=== PATIENT | male | born 1950 | race African-American/Black ===

== ENCOUNTER 2016-06-13 10:19 | Inpatient (IN) | payer MEDICARE, MEDICAID ==
[~2016-06-13] VITALS: Ht 182.9 cm; Wt 97.6 kg
--- NOTE | 2016-06-13 10:27 | PHYS DOC ---
Adult General HPI HPI Patient is a 65 year old male who presents with status and shortness of breath. EMS was called because his O2 sats were noted be 87% upon their arrival. They report he increase it by suctioning saliva out of his mouth and a serum on oxygen at 8 liters per minute. According the patient's brother he is usually conversant of and this is quite a change in his mentation. The patient will open his eyes however he will not follow other commands or speak. He does have a past medical history of aphasia, CVA in the past. According to his brother the same thing happened presents with 3 weeks ago when he was admitted to [facility] in [place] spent the night in the symptoms resolved. Review of Systems Review of Systems Unable to obtain secondary to altered mental status Current Medications Current Medications Current Medications Medications (Trade) Dose Ordered Sig/Venita Start Time Stop Time Status Last Admin Dose Admin Albuterol/ Ipratropium (Duoneb) 3 ml 1X ONCE 06/13/16 10:30 06/13/16 10:42 DC 06/13/16 10:47 3 ML Allergies Allergies Allergies Coded Allergies Type Severity Reaction Last Updated Verified No Known Drug Allergies 06/13/16 No Physical Exam Physical Exam Constitutional: Well developed, well nourished, no acute distress, non-toxic appearance, not following commands. [] HENT: Normocephalic, atraumatic, bilateral external ears normal, oropharynx moist, no oral exudates, nose normal, excessive saliva noted in the nonrebreather. [] Eyes: PERRLA, EOMI, conjunctiva normal, no discharge. [] Neck: Normal range of motion, no tenderness, supple, no stridor. [] Cardiovascular:Heart rate regular rhythm, no murmur [] Lungs & Thorax: Bilateral breath sounds clear to auscultation [] Abdomen: Bowel sounds normal, soft, no tenderness, no masses, no pulsatile masses. [] Skin: Warm, dry, no erythema, no rash. [] Back: No tenderness, no CVA tenderness. [] Extremities: No tenderness, no cyanosis, no clubbing, ROM intact, no edema. [] Neurologic: Alert, will open eyes and squeeze hands, , contracture of the left upper show any Current Patient Data Vital Signs Vital Signs Date Time Temp Pulse Resp B/P Pulse Ox O2 Delivery O2 Flow Rate FiO2 06/13/16 11:15 100 NonRebreather Mask 10.0 06/13/16 10:58 76 30 164/88 06/13/16 10:19 97.8 97.8 Lab Values Laboratory Tests Test 06/13/16 10:26 06/13/16 10:55 06/13/16 11:07 O2 Saturation 99% (92-99) Arterial Blood pH 7.38 (7.35-7.45) Arterial Blood pCO2 at Patient Temp 42mmHg (35-46) Arterial Blood pO2 at Patient Temp 174mmHg (65-108) H Arterial Blood HCO3 24mmol/L (21-28) Arterial Blood Base Excess -1mmol/L (-3-3) Oxyhemoglobin 98.0% Methemoglobin 0.5% (0.0-1.9) Carbon Monoxide, Quantitative 0.3% (0.0-1.9) FiO2 100 White Blood Count 9.1x10^3/uL (4.0-11.0) Red Blood Count 4.08x10^6/uL (4.30-5.70) L Hemoglobin 12.6g/dL (13.0-17.5) L Hematocrit 37.6% (39.0-53.0) L Mean Corpuscular Volume 92fL (79-100) Mean Corpuscular Hemoglobin 31pg (25-35) Mean Corpuscular Hemoglobin Concent 33g/dL (31-37) Red Cell Distribution Width 13.7% (11.5-14.5) Platelet Count 151x10^3/uL (140-400) Neutrophils (%) (Auto) 79% (31-73) H Lymphocytes (%) (Auto) 13% (24-48) L Monocytes (%) (Auto) 8% (0-9) Eosinophils (%) (Auto) 1% (0-3) Basophils (%) (Auto) 0% (0-3) Neutrophils # (Auto) 7.2x10^3uL (1.8-7.7) Lymphocytes # (Auto) 1.1x10^3/uL (1.0-4.8) Monocytes # (Auto) 0.7x10^3/uL (0.0-1.1) Eosinophils # (Auto) 0.1x10^3/uL (0.0-0.7) Basophils # (Auto) 0.0x10^3/uL (0.0-0.2) Sodium Level 139mmol/L (136-145) Potassium Level 4.0mmol/L (3.5-5.1) Chloride Level 102mmol/L (98-107) Carbon Dioxide Level 26mmol/L (21-32) Anion Gap 11 (6-14) Blood Urea Nitrogen 14mg/dL (8-26) Creatinine 1.1mg/dL (0.7-1.3) Estimated GFR (Cockcroft-Gault) 80.8 Glucose Level 120mg/dL (70-99) H Calcium Level 8.8mg/dL (8.5-10.1) Total Bilirubin 0.6mg/dL (0.2-1.0) Direct Bilirubin 0.2mg/dL (0.0-0.2) Aspartate Amino Transferase (AST) 26U/L (15-37) Alanine Aminotransferase (ALT) 17U/L (16-63) Alkaline Phosphatase 50U/L (46-116) Ammonia 31mcmol/L (11-34) Creatine Kinase 95U/L (39-308) Creatine Kinase MB (Mass) 0.8ng/mL (0.0-3.6) Creatine Kinase MB Relative Index 0.8% (0-4) Troponin I Quantitative < 0.017ng/mL (0.000-0.055) HA-Nzl-N-Type Natriuretic Peptide 928pg/mL (0-124) H Total Protein 7.0g/dL (6.4-8.2) Albumin 3.0g/dL (3.4-5.0) L Glucose (Fingerstick) 121mg/dL (70-99) H Laboratory Tests 06/13/16 10:55 Laboratory Tests 06/13/16 10:55 EKG EKG EKG shows sinus rhythm with a rate of [address] elevations, T-wave inversions noted in leads V4,5, and aVL, normal axis, QTC 503 ms, as interpreted by me. Radiology/Procedures Radiology/Procedures [facility] [address] [place] [address] IMAGING REPORT Signed PATIENT: ANTONIO PIZARRO ACCOUNT: [id number] : 1950 LOCATION: ER AGE: 65 SEX: M EXAM STATUS: REG ER ORD. PHYSICIAN: CARLOS A MEDINA MD REASON: AMS PROCEDURE: CT HEAD WO CONTRAST CT head without contrast History: Altered mental status. Comparison: None. Procedure: Axial images are obtained of the head from the skull base through the vertex without IV contrast. One or more of the following individualized dose reduction techniques were utilized for the study: Automated exposure control Adjustment of mA and/or kV according to patient's size Use of iterative reconstruction technique. Findings: Motion artifact is seen at multiple levels which could obscure subtle abnormalities. There is mild-moderate diffuse cerebral and cerebellar volume loss, greater than expected for patient age. No mass-effect, intracranial mass, midline shift, hemorrhage or obvious acute infarction is identified. Basilar cisterns are patent. Patchy, nonspecific white matter low attenuation is seen, probably from chronic microvascular ischemic disease. Bone windows demonstrate no significant calvarial abnormality. The visualized paranasal sinuses appear clear. Impression: 1. Limited examination. No acute intracranial process. Please note that CT can be relatively insensitive to acute ischemic infarction for up to 24 hours after symptom onset. 2. Diffuse cerebral volume loss, greater than expected for patient age. 3. Nonspecific white matter changes, probably from chronic microvascular ischemic disease. DICTATED and SIGNED BY: LIZ RAMIREZ MD DATE: 06/13/16 115 CC: CARLOS A MEDINA MD; RAHEL MENCHACA MD ~ [facility] [address] [place] [id number] IMAGING REPORT Signed PATIENT: ANTONIO PIZARRO ACCOUNT: [id number] : 1950 LOCATION: ER AGE: 65 SEX: M EXAM STATUS: PRE ER ORD. PHYSICIAN: CARLOS A MEDINA MD REASON: soa PROCEDURE: PORTABLE CHEST 1V Portable chest, 06/13/2016: History: Shortness of breath The heart size and pulmonary vascularity are normal. There is mild calcific plaquing and tortuosity of the thoracic aorta. No pulmonary infiltrates are seen. There is no evidence of pleural fluid. Moderate spurring is present in the spine. IMPRESSION: 1. Aortic atherosclerosis. 2. No acute cardiopulmonary abnormality is detected. DICTATED and SIGNED BY: KEYUR CAVANAUGH MD DATE: 06/13/16 1052 CC: CARLOS A MEDINA MD ~ Impressions: Altered mental status Hypoxemia Course & Med Decision Making Course & Med Decision Making Pertinent Labs and Imaging studies reviewed. (See chart for details) Patient presents with somnolence and needing oxygen to keep his O2 sats up. ABG on a nonrebreather do not show any acute abnormalities. He was titrated down to a nasal cannula. He is able to open his eyes answer questions appropriately but is very somnolent. I'm not sure if he is receiving too much medications at his facility or he's got an organic process going on. CT scan of his head did not show any acute abnormalities his chest x-rays negative and basic labs are not concerning. He is being admitted the hospitalist for continued monitoring and additional workup. I spoke with regarding the patient's condition. He is in stable condition at this time his brother at bedside. According to his brother had a similar episode 3 weeks ago and was hospitalized at [facility] in [place]. Dragon Disclaimer Dragon Disclaimer This electronic medical record was generated, in whole or in part, using a voice recognition dictation system. Departure Departure Impression: Primary Impression: Mental status change Admitting Physician: Anton Ayon Condition: STABLE Problem Qualifiers Primary Impression: Mental status change Altered mental status type: somnolence Qualified Code: R40.0 - Somnolence CARLOS A MEDINA MD Jun 13, 2016 10:27
[2016-06-13] MEDS ORDERED: IPRATRPIUM/ALBUTEROL 0.5/2.5MG 3 ML NEBU. NEB ONE (10:30)
--- NOTE | 2016-06-13 10:55 | RAD ---
Portable chest, 06/13/2016: History: Shortness of breath The heart size and pulmonary vascularity are normal. There is mild calcific plaquing and tortuosity of the thoracic aorta. No pulmonary infiltrates are seen. There is no evidence of pleural fluid. Moderate spurring is present in the spine. IMPRESSION: 1. Aortic atherosclerosis. 2. No acute cardiopulmonary abnormality is detected.
[2016-06-13 11:21] LABS: BASO % 0 % (0-3); EOS % 1 % (0-3); HEMATOCRIT 37.6 % (39.0-53.0); HEMOGLOBIN 12.6 g/dL (13.0-17.5); LYMPH # 1.1 x10^3/uL (1.0-4.8); LYMPH % 13 % (24-48); MEAN CORPUSCULAR HEMOGLOBIN 31 pg (25-35); MEAN CORPUSCULAR HGB CONC 33 g/dL (31-37); MEAN CORPUSCULAR VOLUME 92 fL (79-100); MONO % 8 % (0-9); NEUT % 79 % (31-73); PLATELET COUNT 151 x10^3/uL (140-400); RED BLOOD COUNT 4.08 x10^6/uL (4.30-5.70); RED CELL DISTRIBUTION WIDTH 13.7 % (11.5-14.5); WHITE BLOOD COUNT 9.1 x10^3/uL (4.0-11.0)
[2016-06-13 11:33] LABS: CALCIUM 8.8 mg/dL (8.5-10.1); CREATININE 1.1 mg/dL (0.7-1.3); GFR 80.8
[2016-06-13 11:39] LABS: DIRECT BILIRUBIN 0.2 mg/dL (0.0-0.2); TOTAL BILIRUBIN 0.6 mg/dL (0.2-1.0)
--- NOTE | 2016-06-13 11:41 | EKG ---
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
[2016-06-13 11:46] LABS: CKMB MASS 0.8 ng/mL (0.0-3.6)
--- NOTE | 2016-06-13 12:04 | RAD ---
CT head without contrast History: Altered mental status. Comparison: None. Procedure: Axial images are obtained of the head from the skull base through the vertex without IV contrast. One or more of the following individualized dose reduction techniques were utilized for the study: Automated exposure control Adjustment of mA and/or kV according to patient's size Use of iterative reconstruction technique. Findings: Motion artifact is seen at multiple levels which could obscure subtle abnormalities. There is mild-moderate diffuse cerebral and cerebellar volume loss, greater than expected for patient age. No mass-effect, intracranial mass, midline shift, hemorrhage or obvious acute infarction is identified. Basilar cisterns are patent. Patchy, nonspecific white matter low attenuation is seen, probably from chronic microvascular ischemic disease. Bone windows demonstrate no significant calvarial abnormality. The visualized paranasal sinuses appear clear. Impression: 1. Limited examination. No acute intracranial process. Please note that CT can be relatively insensitive to acute ischemic infarction for up to 24 hours after symptom onset. 2. Diffuse cerebral volume loss, greater than expected for patient age. 3. Nonspecific white matter changes, probably from chronic microvascular ischemic disease.
[2016-06-13] MEDS ORDERED: ONDANSETRON PF 4 MG/2 ML VIAL. IV PRN (12:30)
[2016-06-13 12:34] LABS: BILIRUBIN,URINE NEGATIVE (NEG); GLUCOSE,URINE NEGATIVE (NEG); NITRITE,URINE NEGATIVE (NEG); PROTEIN,URINE NEGATIVE (NEG-TRACE)
[2016-06-13 12:35] LABS: BACTERIA,URINE 0 /HPF (0-FEW); RBC,URINE 0 /HPF (0-2); WBC,URINE OCC /HPF (0-4)
--- NOTE | 2016-06-13 13:09 | ACF ---
Admission Forms Criteria MENTAL STATUS CHANGE Clinical Indications for Inpatient Care (Place 'X' for any and all applicable criteria): Ongoing inpatient care may be needed for 1 or more of the following(1)(2)(3)(5)( 6): [X]I. Suspected serious etiology (eg, medical disorder, DIRECTOR OF PLANNING event) of altered mental status [ ]II. Danger to self or others not manageable at lower level of care [ ]III. Grave disability (eg, inability to perform self care necessary at lower level of care) [ ]IV. Agitation or inappropriate behavior interfering with care for primary condition (eg, attempting to discontinue lines or drains prematurely, unable to cooperate with respiratory care) [ ]V. Delirium [A] [D][E] as described by 1 or more of the following(26): [ ]a) Delirium due to alcohol or sedative [F] withdrawal [ ]b) Delirium of uncertain etiology that has not responded to appropriate empiric treatment [ ]c) Delirium that prevents performance of a life-sustaining function (eg, feeding or hydrating oneself) [X]. General contraindications and/or Inappropriate clinical situations for Observational Care in patients with Mental Status Change, when ANY ONE of the following is required: [X]a) Prediction of prolongation of LOS based on ANY ONE of the following may be considered as a contraindication for observational care 2, 3, 4, 5, 6, 7, 8, 9, 10, 11 [X]i) Age > 65 yrs. [ ]ii) Patient arriving by ambulance [ ]iii) Patient with high acuity [ ]iv) Patient requiring vital sign monitoring [ ]v) Patient on IV medication [ ]b) Systolic blood pressures greater than or equal to 180mmHg 3, 12 [ ]c) Patient with altered mental status including delirium and other alteration of consciousness, (3) [ ]d) Patient whose discharge disposition will be to a fci home or rehabilitation home should not be managed in Emergency Department Observation Unit. CMS rule requires 3 days hospital stay before such placement.3,13 [ ]e) Patient with failure to thrive due to broad array of etiologies 3,16,17 [ ]f) Inability to ambulate 3,14 Extended stay beyond goal length of stay for the primary condition may be needed until ALL of the following are present(3)(5): [ ]a) Underlying medical etiology of mental status change is absent, or has been established and adequately treated [ ]b) Danger to self or others is absent or manageable at lower level of care. [ ]c) Behavior crisis management, including physical or chemical restraints, is not required or available at lower level of car [ ]d) Substance or alcohol withdrawal is absent or manageable at lower level of care. [ ]e) Behavioral symptoms (eg, agitation, somnolence, inappropriate behavior) are absent, or are manageable at lower level of care. The original [facility] [employer] content created by [facility] has been revised. The portions of the content which have been revised are identified through the use of italic text or in bold, and [facility] has neither reviewed nor approved the modified material. All other unmodified content is copyright [facility]. Please see references footnoted in the original [facility] edition 2016 Admission Criteria Met?: Yes RAHEEM VELÁSQUEZ Jun 13, 2016 13:09
[2016-06-13 14:19] LABS: BASE EXCESS COOX -1 mmol/L (-3-3); CARBON MONOXIDE 0.3 % (0.0-1.9); HCO3 COOX 24 mmol/L (21-28); METHEMOGLOBIN 0.5 % (0.0-1.9); PCO2 COOX 42 mmHg (35-46); PH COOX 7.38 (7.35-7.45); PO2 COOX 174 mmHg (65-108); SAT O2 COOX 99 % (92-99); TOTAL HEMOGLOBIN 13.4 g/dL
[2016-06-13 14:20] LABS: FIO2 COOX 100
[2016-06-13 15:01] VITALS: BP 158/97
[2016-06-13] MEDS ORDERED: ACET500T68 PO (16:17)
[2016-06-13] MEDS ORDERED: ALBU2.5V14 NEB (17:05)
[2016-06-13] MEDS ORDERED: BACL10TA PO ×2 (17:05)
[2016-06-13] MEDS ORDERED: CHOL200044 PO (17:05)
[2016-06-13] MEDS ORDERED: MULT-246 PO (17:05)
[2016-06-13] MEDS ORDERED: DIVA500T4 PO (17:05)
[2016-06-13] MEDS ORDERED: SERT100T PO (17:05)
[2016-06-13] MEDS ORDERED: CARV12.52 PO (17:05)
[2016-06-13] MEDS ORDERED: BISA10SU2 RC (17:05)
[2016-06-13] MEDS ORDERED: MAGN400O4 PO (17:05)
[2016-06-13] MEDS ORDERED: ASPI-482 PO (17:05)
[2016-06-13] MEDS ORDERED: DONE10TA34 PO (17:05)
[2016-06-13] MEDS ORDERED: TRAZ50TA15 PO (17:05)
[2016-06-13] MEDS ORDERED: NIFE60TA PO (17:05)
[2016-06-13] MEDS ORDERED: MEMA10TA PO (17:05)
[2016-06-13] MEDS ORDERED: SODI30SP NS (17:05)
[2016-06-13] MEDS ORDERED: PROP15DR EACHEYE (17:05)
[2016-06-13] MEDS ORDERED: LISI40TA PO (17:05)
[2016-06-13] MEDS ORDERED: WARF4TAB68 PO (17:05)
[2016-06-13] MEDS ORDERED: LOPE2TAB27 PO (17:05)
[2016-06-13] MEDS ORDERED: HYDR100T24 PO (17:05)
[2016-06-13] MEDS ORDERED: DICL100G7 TP (17:05)
[2016-06-13] MEDS ORDERED: BUSP10TA PO (17:05)
[2016-06-13] MEDS ORDERED: MAGN2400 PO (17:05)
[2016-06-13] MEDS ORDERED: SENN1TAB21 PO (17:05)
[2016-06-13] MEDS ORDERED: POTA20LI27 PO (17:05)
[2016-06-13] MEDS ORDERED: ATOR20TA58 PO (17:05)
[2016-06-13 19:00] VITALS: BP 148/88
[2016-06-13] MEDS ORDERED: NON FORMULARY ITEM (Albuterol Sulfate (Albuterol Sulfate Conc Neb Soln) 2.5 MG) NEB PRN (20:15)
[2016-06-13] MEDS ORDERED: MAGNESIUM HYDROXIDE 2,400 MG/30 ML ORAL.SUSP. PO PRN ×2 (20:15→20:30)
[2016-06-13] MEDS ORDERED: DICLOFENAC SODIUM 1% TOPICAL GEL 100GM TUBE. TP PRN (20:15)
[2016-06-13] MEDS ORDERED: ACETAMINOPHEN 500 MG TABLET PO PRN (20:15)
[2016-06-13] MEDS ORDERED: BISACODYL 10 MG SUPP.RECT. RC PRN (20:15)
[2016-06-13] MEDS ORDERED: LOPERAMIDE 2 MG CAPSULE PO PRN (20:30)
[2016-06-13] MEDS ORDERED: ALBUTEROL SULFATE 2.5 MG/3 ML NEBU. NEB PRN (20:30)
[2016-06-13 20:58] LABS: INR 3.4 (0.8-1.1); PROTHROMBIN TIME PATIENT 32.4 SEC (11.7-14.0)
[2016-06-13] MEDS: busPIRone 10 MG TABLET. PO SCH (21:21)
[2016-06-13] MEDS: MEMANTINE 10 MG TABLET. PO SCH (21:21)
[2016-06-13] MEDS: ATORVASTATIN CALCIUM 20 MG TABLET PO SCH (21:22)
[2016-06-13] MEDS: DONEPEZIL HCL 10 MG TABLET. PO SCH (21:22)
[2016-06-13] MEDS: LISINOPRIL 40 MG TABLET. PO SCH (21:22)
[2016-06-13] MEDS: DIVALPROEX DELAYED RELEASE 250 MG TABLET.DR. PO SCH (21:23)
[2016-06-13] MEDS: CARVEDILOL 12.5 MG TABLET. PO SCH (21:23)
[2016-06-13] MEDS: SENNOSIDES/DOCUSATE 8.6/50MG TABLET. PO SCH (21:23)
[2016-06-13] MEDS: POLYVINYL ALCOHOL 1.4% OPHTH SOLUTION 15ML BOTTLE. OU SCH (21:24)
[2016-06-13] MEDS: SODIUM CHLORIDE 0.65% NASAL SPRAY 45ML BOTTLE. NS SCH (21:24)
[2016-06-13 22:32] VITALS: BP 126/84
--- NOTE | 2016-06-13 23:02 | HP ---
ADMIT DATE: 06/13/2016 CHIEF COMPLAINT: Mental status changes, hypoxia. HISTORY OF PRESENT ILLNESS: The patient is a 65-year-old -[place] long-term patient with multiple medical issues, who presented from the long-term to the Emergency Room with altered mental status and had been found with hypoxia down to 87%. In the Emergency Room, he essentially was nonresponsive beyond opening eyes on commands, but not following any other commands or nonverbal. Now, a few hours later, he is actually responding verbally and sensically and is following commands. Apparently, same thing happened about 3 weeks ago, at which time, he had been admitted at [facility] with complete resolution of his symptoms. Please note, personal, family and social history could not be obtained from the patient. Family is currently not available. ALLERGIES: No known drug allergies. MEDICATIONS: Home medications were reconciled with MAR. REVIEW OF SYSTEMS: Is brief as the patient is fairly lethargic, but he denies any pain. States he is very sleepy and has no complaints at this time. He denies any nausea or vomiting. Is not hungry or thirsty at this time. PHYSICAL EXAMINATION: VITAL SIGNS: Show a blood pressure of 148/88, heart rate of 84, respiratory rate at 18. He is afebrile. GENERAL: This is a well-nourished 65-year-old -[place] gentleman who is lying in bed, sleeping, but awakes to verbal input. HEENT: Shows no scleral icterus. He has mild ptosis on the right. Oral mucosa is pink and moist. NECK: Supple. LUNGS: Clear to auscultation bilaterally. HEART: Has regular rate and rhythm. ABDOMEN: Has positive bowel sounds, soft, nontender. EXTREMITIES: Show trace edema. The left side is flaccid. SKIN: Warm, soft and dry. LABORATORY DATA: CBC with a WBC of 9.1, hemoglobin 12.6, platelets of 151. Chemistries with a BUN and creatinine of 14 and 1.1, normal electrolytes, glucose at 120. LFTs within normal. ProBNP 928, albumin at 3.0. Urine is negative for signs of infection. IMAGING DATA: CT of the head shows no acute intracranial process, diffuse cerebral volume loss greater than expected for the patient age, nonspecific white matter changes, probably from chronic microvascular ischemic disease. 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 The events are suspicious for a sedative drug interaction. In review of his medications, very few medications could be considered. Both of these have been held for the time being including trazodone and baclofen. Consider obtaining an MRI of the head to rule out other issues. Metabolically, no etiology of his mental status changes with recovery can be discerned. The patient apparently has heart history. All his medications for secondary prevention will be continued. He also is on warfarin. We will monitor INR and continue oral anticoagulant therapy. He has nifedipine for a suspected diagnosis of atrial fibrillation. We will continue this medication as well. KATELIN MCCARTHY MD DR: UR/nts JOB#: [id number] / [id number] RAHEL Chery MD MTDD
[2016-06-14 00:37] LABS: BASO % 0 % (0-3); EOS % 0 % (0-3); HEMATOCRIT 33.6 % (39.0-53.0); HEMOGLOBIN 11.1 g/dL (13.0-17.5); LYMPH # 1.4 x10^3/uL (1.0-4.8); LYMPH % 13 % (24-48); MEAN CORPUSCULAR HEMOGLOBIN 31 pg (25-35); MEAN CORPUSCULAR HGB CONC 33 g/dL (31-37); MEAN CORPUSCULAR VOLUME 93 fL (79-100); MONO % 9 % (0-9); NEUT % 77 % (31-73); PLATELET COUNT 141 x10^3/uL (140-400); RED BLOOD COUNT 3.63 x10^6/uL (4.30-5.70); RED CELL DISTRIBUTION WIDTH 13.3 % (11.5-14.5); WHITE BLOOD COUNT 10.2 x10^3/uL (4.0-11.0)
[2016-06-14 00:48] LABS: INR 3.6 (0.8-1.1); PROTHROMBIN TIME PATIENT 33.8 SEC (11.7-14.0)
[2016-06-14 00:58] LABS: ALBUMIN 2.6 g/dL (3.4-5.0); ALBUMIN/GLOBULIN RATIO 0.7 (1.0-1.7); CALCIUM 8.4 mg/dL (8.5-10.1); CREATININE 1.5 mg/dL (0.7-1.3); GFR 56.5; POTASSIUM 4.1 mmol/L (3.5-5.1); TOTAL BILIRUBIN 0.6 mg/dL (0.2-1.0); TOTAL PROTEIN 6.2 g/dL (6.4-8.2)
[2016-06-14 02:53] VITALS: BP 99/52
[2016-06-14 07:00] VITALS: BP 94/56
[2016-06-14] MEDS: ASPIRIN ENTERIC COATED 81 MG TABLET.DR. PO SCH (08:00)
[2016-06-14] MEDS: CARVEDILOL 12.5 MG TABLET. PO SCH ×2 (08:00→13:44)
[2016-06-14] MEDS: LISINOPRIL 40 MG TABLET. PO SCH (09:00)
[2016-06-14] MEDS: MEMANTINE 10 MG TABLET. PO SCH ×2 (09:00→21:00)
[2016-06-14] MEDS: SENNOSIDES/DOCUSATE 8.6/50MG TABLET. PO SCH ×2 (09:00→21:00)
[2016-06-14] MEDS: SERTRALINE 25 MG TABLET. PO SCH (09:00)
[2016-06-14] MEDS: MULTIVITAMIN with MINERAL TABLET. PO SCH (09:00)
[2016-06-14] MEDS: busPIRone 10 MG TABLET. PO SCH ×4 (09:00→21:00)
[2016-06-14] MEDS: CHOLECALCIFEROL (VITAMIN D3) 1,000 UNIT TABLET PO SCH (09:00)
[2016-06-14] MEDS: DIVALPROEX DELAYED RELEASE 250 MG TABLET.DR. PO SCH ×2 (09:00→21:00)
[2016-06-14] MEDS ORDERED: WARFARIN 4 MG TABLET. PO SCH (09:00)
[2016-06-14 10:54] VITALS: BP 103/70
[2016-06-14 11:05] LABS: BARBITURATES NEG (NEG); BENZODIAZEPINES NEG (NEG); CANNABINOIDS NEG (NEG); COCAINE NEG (NEG); METHADONE NEG (NEG); OPIATES NEG (NEG); PHENCYCLIDINE NEG (NEG)
[2016-06-14] MEDS ORDERED: GADOBUTROL 10 MMOL/10 ML VIAL IV ONE (12:00)
--- NOTE | 2016-06-14 12:26 | RAD ---
PROCEDURE Brain MRI with and without contrast. HISTORY Alzheimer's. Mental status changes. TECHNIQUE Multiplanar and multi sequence magnetic resonance imaging of the brain was performed prior to and following the administration of 9 cc Gadavist intravenous contrast. COMPARISON CT dated 06/13/2016. FINDINGS There is no restricted diffusion to suggest acute or subacute infarction. There is susceptibility effect consistent with a chronic hemorrhage or hemorrhagic infarct within the right thalamus. There is T2/FLAIR hyperintensity throughout the cerebral white matter, likely due to chronic small vessel disease. There is superimposed signal change within the right posterior periventricular white matter and cerebral peduncle likely due to the sequela of aforementioned chronic infarction. There is ex vacuo dilatation of the atrium of the right lateral ventricle. There is cerebral volume loss. There are findings consistent with left lens surgery. There is paranasal sinus mucosal thickening. The mastoid air cells are clear. There are normal flow voids within the cerebral vessels. No enhancing lesion is seen. IMPRESSION 1. Chronic hemorrhage or hemorrhagic infarction within the right thalamus with associated volume loss and signal change within the adjacent posterior periventricular white matter and cerebral peduncle. 2. Scattered focal areas of signal change within the cerebral white matter, likely due to chronic small vessel disease. 3. Cerebral atrophy. Electronically signed by: May Ventura (Jun 14, 2016 12:24:49)
[2016-06-14] MEDS: POLYVINYL ALCOHOL 1.4% OPHTH SOLUTION 15ML BOTTLE. OU SCH ×4 (13:00→22:23)
[2016-06-14] MEDS: IV NORMAL SALINE 1000ML BAG 1,000 ML IV SCH (13:07)
[2016-06-14] MEDS: SODIUM CHLORIDE 0.65% NASAL SPRAY 45ML BOTTLE. NS SCH ×3 (13:11→22:23)
[2016-06-14 15:09] VITALS: BP 133/76
[2016-06-14] MEDS ORDERED: WARFARIN 2.5 MG TABLET. PO ONE (16:00)
[2016-06-14] MEDS ORDERED: WARFARIN 2 MG TABLET. PO ONE (16:00)
[2016-06-14 19:00] VITALS: BP 149/83
[2016-06-14] MEDS: ATORVASTATIN CALCIUM 20 MG TABLET PO SCH (21:00)
[2016-06-14] MEDS: DONEPEZIL HCL 10 MG TABLET. PO SCH (21:00)
--- NOTE | 2016-06-14 22:55 | PDOC ---
PROGRESS NOTES Chief Complaint Chief Complaint CC: ams ENCEPHALOPATHY POA ? 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 Warfarin dosing per pharmacy Vitals Vitals Vital Signs Date Time Temp Pulse Resp B/P Pulse Ox O2 Delivery O2 Flow Rate FiO2 06/14/16 19:00 98.3 70 18 149/83 94 Nasal Cannula 5.0 98.3 Physical Exam General: Alert Heart: Normal S1, Normal S2 Lungs: Clear Extremities: No clubbing, Other (left side weakness. ) Labs LABS Laboratory Tests Test 06/14/16 00:30 06/14/16 10:15 White Blood Count 10.2x10^3/uL (4.0-11.0) Red Blood Count 3.63x10^6/uL (4.30-5.70) Hemoglobin 11.1g/dL (13.0-17.5) Hematocrit 33.6% (39.0-53.0) Mean Corpuscular Volume 93fL (79-100) Mean Corpuscular Hemoglobin 31pg (25-35) Mean Corpuscular Hemoglobin Concent 33g/dL (31-37) Red Cell Distribution Width 13.3% (11.5-14.5) Platelet Count 141x10^3/uL (140-400) Neutrophils (%) (Auto) 77% (31-73) Lymphocytes (%) (Auto) 13% (24-48) Monocytes (%) (Auto) 9% (0-9) Eosinophils (%) (Auto) 0% (0-3) Basophils (%) (Auto) 0% (0-3) Neutrophils # (Auto) 7.9x10^3uL (1.8-7.7) Lymphocytes # (Auto) 1.4x10^3/uL (1.0-4.8) Monocytes # (Auto) 0.9x10^3/uL (0.0-1.1) Eosinophils # (Auto) 0.0x10^3/uL (0.0-0.7) Basophils # (Auto) 0.0x10^3/uL (0.0-0.2) Prothrombin Time 33.8SEC (11.7-14.0) Prothromb Time International Ratio 3.6 (0.8-1.1) Sodium Level 139mmol/L (136-145) Potassium Level 4.1mmol/L (3.5-5.1) Chloride Level 103mmol/L (98-107) Carbon Dioxide Level 25mmol/L (21-32) Anion Gap 11 (6-14) Blood Urea Nitrogen 21mg/dL (8-26) Creatinine 1.5mg/dL (0.7-1.3) Estimated GFR (Cockcroft-Gault) 56.5 BUN/Creatinine Ratio 14 (6-20) Glucose Level 84mg/dL (70-99) Calcium Level 8.4mg/dL (8.5-10.1) Total Bilirubin 0.6mg/dL (0.2-1.0) Aspartate Amino Transf (AST/SGOT) 16U/L (15-37) Alanine Aminotransferase (ALT/SGPT) 16U/L (16-63) Alkaline Phosphatase 38U/L (46-116) Troponin I Quantitative 0.017ng/mL (0.000-0.055) Total Protein 6.2g/dL (6.4-8.2) Albumin 2.6g/dL (3.4-5.0) Albumin/Globulin Ratio 0.7 (1.0-1.7) Urine Opiates Screen Neg (NEG) Urine Methadone Screen Neg (NEG) Urine Barbiturates Neg (NEG) Urine Phencyclidine Screen Neg (NEG) Urine Amphetamine/Methamphetamine Neg (NEG) Urine Benzodiazepines Screen Neg (NEG) Urine Cocaine Screen Neg (NEG) Urine Cannabinoids Screen Neg (NEG) Urine Ethyl Alcohol Neg (NEG) Assessment and Plan Assessmemt and Plan Problems Medical Problems: (1) Mental status change Status: Acute Problems: Comment Review of Relevant I have reviewed the following items mandy (where applicable) has been applied. Labs Laboratory Tests Test 06/13/16 10:26 06/13/16 10:55 06/13/16 11:07 06/13/16 11:46 O2 Saturation 99% (92-99) Arterial Blood pH 7.38 (7.35-7.45) Arterial Blood pCO2 at Patient Temp 42mmHg (35-46) Arterial Blood pO2 at Patient Temp 174mmHg (65-108) Arterial Blood HCO3 24mmol/L (21-28) Arterial Blood Base Excess -1mmol/L (-3-3) Oxyhemoglobin 98.0% Methemoglobin 0.5% (0.0-1.9) Carbon Monoxide, Quantitative 0.3% (0.0-1.9) FiO2 100 White Blood Count 9.1x10^3/uL (4.0-11.0) Red Blood Count 4.08x10^6/uL (4.30-5.70) Hemoglobin 12.6g/dL (13.0-17.5) Hematocrit 37.6% (39.0-53.0) Mean Corpuscular Volume 92fL (79-100) Mean Corpuscular Hemoglobin 31pg (25-35) Mean Corpuscular Hemoglobin Concent 33g/dL (31-37) Red Cell Distribution Width 13.7% (11.5-14.5) Platelet Count 151x10^3/uL (140-400) Neutrophils (%) (Auto) 79% (31-73) Lymphocytes (%) (Auto) 13% (24-48) Monocytes (%) (Auto) 8% (0-9) Eosinophils (%) (Auto) 1% (0-3) Basophils (%) (Auto) 0% (0-3) Neutrophils # (Auto) 7.2x10^3uL (1.8-7.7) Lymphocytes # (Auto) 1.1x10^3/uL (1.0-4.8) Monocytes # (Auto) 0.7x10^3/uL (0.0-1.1) Eosinophils # (Auto) 0.1x10^3/uL (0.0-0.7) Basophils # (Auto) 0.0x10^3/uL (0.0-0.2) Sodium Level 139mmol/L (136-145) Potassium Level 4.0mmol/L (3.5-5.1) Chloride Level 102mmol/L (98-107) Carbon Dioxide Level 26mmol/L (21-32) Anion Gap 11 (6-14) Blood Urea Nitrogen 14mg/dL (8-26) Creatinine 1.1mg/dL (0.7-1.3) Estimated GFR (Cockcroft-Gault) 80.8 Glucose Level 120mg/dL (70-99) Calcium Level 8.8mg/dL (8.5-10.1) Total Bilirubin 0.6mg/dL (0.2-1.0) Direct Bilirubin 0.2mg/dL (0.0-0.2) Aspartate Amino Transf (AST/SGOT) 26U/L (15-37) Alanine Aminotransferase (ALT/SGPT) 17U/L (16-63) Alkaline Phosphatase 50U/L (46-116) Ammonia 31mcmol/L (11-34) Creatine Kinase 95U/L (39-308) Creatine Kinase MB (Mass) 0.8ng/mL (0.0-3.6) Creatine Kinase MB Relative Index 0.8% (0-4) Troponin I Quantitative < 0.017ng/mL (0.000-0.055) EF-Mab-V-Type Natriuretic Peptide 928pg/mL (0-124) Total Protein 7.0g/dL (6.4-8.2) Albumin 3.0g/dL (3.4-5.0) Glucose (Fingerstick) 121mg/dL (70-99) Urine Collection Type U cath Urine Color Yellow Urine Clarity Clear Urine pH 7.0 Urine Specific [place] 1.010 Urine Protein Negativemg/dL (NEG-TRACE) Urine Glucose (UA) Negativemg/dL (NEG) Urine Ketones (Stick) Tracemg/dL (NEG) Urine Blood Negative (NEG) Urine Nitrite Negative (NEG) Urine Bilirubin Negative (NEG) Urine Urobilinogen Dipstick 1.0mg/dL (0.2 mg/dL) Urine Leukocyte Esterase Negative (NEG) Urine RBC 0/HPF (0-2) Urine WBC Occ/HPF (0-4) Urine Bacteria 0/HPF (0-FEW) Test 06/13/16 15:30 06/13/16 16:25 06/13/16 18:20 06/13/16 20:40 Nasal Screen MRSA (PCR) Negative (Negative) Glucose (Fingerstick) 105mg/dL (70-99) Troponin I Quantitative 0.019ng/mL (0.000-0.055) Prothrombin Time 32.4SEC (11.7-14.0) Prothromb Time International Ratio 3.4 (0.8-1.1) Test 06/14/16 00:30 06/14/16 10:15 White Blood Count 10.2x10^3/uL (4.0-11.0) Red Blood Count 3.63x10^6/uL (4.30-5.70) Hemoglobin 11.1g/dL (13.0-17.5) Hematocrit 33.6% (39.0-53.0) Mean Corpuscular Volume 93fL (79-100) Mean Corpuscular Hemoglobin 31pg (25-35) Mean Corpuscular Hemoglobin Concent 33g/dL (31-37) Red Cell Distribution Width 13.3% (11.5-14.5) Platelet Count 141x10^3/uL (140-400) Neutrophils (%) (Auto) 77% (31-73) Lymphocytes (%) (Auto) 13% (24-48) Monocytes (%) (Auto) 9% (0-9) Eosinophils (%) (Auto) 0% (0-3) Basophils (%) (Auto) 0% (0-3) Neutrophils # (Auto) 7.9x10^3uL (1.8-7.7) Lymphocytes # (Auto) 1.4x10^3/uL (1.0-4.8) Monocytes # (Auto) 0.9x10^3/uL (0.0-1.1) Eosinophils # (Auto) 0.0x10^3/uL (0.0-0.7) Basophils # (Auto) 0.0x10^3/uL (0.0-0.2) Prothrombin Time 33.8SEC (11.7-14.0) Prothromb Time International Ratio 3.6 (0.8-1.1) Sodium Level 139mmol/L (136-145) Potassium Level 4.1mmol/L (3.5-5.1) Chloride Level 103mmol/L (98-107) Carbon Dioxide Level 25mmol/L (21-32) Anion Gap 11 (6-14) Blood Urea Nitrogen 21mg/dL (8-26) Creatinine 1.5mg/dL (0.7-1.3) Estimated GFR (Cockcroft-Gault) 56.5 BUN/Creatinine Ratio 14 (6-20) Glucose Level 84mg/dL (70-99) Calcium Level 8.4mg/dL (8.5-10.1) Total Bilirubin 0.6mg/dL (0.2-1.0) Aspartate Amino Transf (AST/SGOT) 16U/L (15-37) Alanine Aminotransferase (ALT/SGPT) 16U/L (16-63) Alkaline Phosphatase 38U/L (46-116) Troponin I Quantitative 0.017ng/mL (0.000-0.055) Total Protein 6.2g/dL (6.4-8.2) Albumin 2.6g/dL (3.4-5.0) Albumin/Globulin Ratio 0.7 (1.0-1.7) Urine Opiates Screen Neg (NEG) Urine Methadone Screen Neg (NEG) Urine Barbiturates Neg (NEG) Urine Phencyclidine Screen Neg (NEG) Urine Amphetamine/Methamphetamine Neg (NEG) Urine Benzodiazepines Screen Neg (NEG) Urine Cocaine Screen Neg (NEG) Urine Cannabinoids Screen Neg (NEG) Urine Ethyl Alcohol Neg (NEG) Laboratory Tests Test 06/14/16 00:30 06/14/16 10:15 White Blood Count 10.2x10^3/uL (4.0-11.0) Red Blood Count 3.63x10^6/uL (4.30-5.70) Hemoglobin 11.1g/dL (13.0-17.5) Hematocrit 33.6% (39.0-53.0) Mean Corpuscular Volume 93fL (79-100) Mean Corpuscular Hemoglobin 31pg (25-35) Mean Corpuscular Hemoglobin Concent 33g/dL (31-37) Red Cell Distribution Width 13.3% (11.5-14.5) Platelet Count 141x10^3/uL (140-400) Neutrophils (%) (Auto) 77% (31-73) Lymphocytes (%) (Auto) 13% (24-48) Monocytes (%) (Auto) 9% (0-9) Eosinophils (%) (Auto) 0% (0-3) Basophils (%) (Auto) 0% (0-3) Neutrophils # (Auto) 7.9x10^3uL (1.8-7.7) Lymphocytes # (Auto) 1.4x10^3/uL (1.0-4.8) Monocytes # (Auto) 0.9x10^3/uL (0.0-1.1) Eosinophils # (Auto) 0.0x10^3/uL (0.0-0.7) Basophils # (Auto) 0.0x10^3/uL (0.0-0.2) Prothrombin Time 33.8SEC (11.7-14.0) Prothromb Time International Ratio 3.6 (0.8-1.1) Sodium Level 139mmol/L (136-145) Potassium Level 4.1mmol/L (3.5-5.1) Chloride Level 103mmol/L (98-107) Carbon Dioxide Level 25mmol/L (21-32) Anion Gap 11 (6-14) Blood Urea Nitrogen 21mg/dL (8-26) Creatinine 1.5mg/dL (0.7-1.3) Estimated GFR (Cockcroft-Gault) 56.5 BUN/Creatinine Ratio 14 (6-20) Glucose Level 84mg/dL (70-99) Calcium Level 8.4mg/dL (8.5-10.1) Total Bilirubin 0.6mg/dL (0.2-1.0) Aspartate Amino Transf (AST/SGOT) 16U/L (15-37) Alanine Aminotransferase (ALT/SGPT) 16U/L (16-63) Alkaline Phosphatase 38U/L (46-116) Troponin I Quantitative 0.017ng/mL (0.000-0.055) Total Protein 6.2g/dL (6.4-8.2) Albumin 2.6g/dL (3.4-5.0) Albumin/Globulin Ratio 0.7 (1.0-1.7) Urine Opiates Screen Neg (NEG) Urine Methadone Screen Neg (NEG) Urine Barbiturates Neg (NEG) Urine Phencyclidine Screen Neg (NEG) Urine Amphetamine/Methamphetamine Neg (NEG) Urine Benzodiazepines Screen Neg (NEG) Urine Cocaine Screen Neg (NEG) Urine Cannabinoids Screen Neg (NEG) Urine Ethyl Alcohol Neg (NEG) Medications Current Medications Albuterol/ Ipratropium (Duoneb) 3 ml 1X ONCE NEB Last administered on t 10:47; Start 06/13/16 at 10:30; Stop 06/13/16 at 10:42; Status DC Ondansetron HCl (Zofran) 4 mg PRN Q8HRS PRN IV NAUSEA/VOMITING; Start 06/13/16 at 12:30; Stop 06/14/16 at 12:29; Status DC Acetaminophen (Tylenol) 500 mg PRN Q4HRS PRN PO PAIN; Start 06/13/16 at 20:15 Aspirin (Ecotrin) 81 mg DAILYWBKFT PO ; Start 06/14/16 at 08:00 Atorvastatin Calcium (Lipitor) 20 mg HS PO Last administered on 06/13/16 21:22 ; Start 06/13/16 at 21:00 Bisacodyl (Dulcolax Supp) 10 mg PRN DAILY PRN RC CONSTIPATION; Start 06/13/16 at 20:15 Buspirone HCl (Buspar) 10 mg QID PO Last administered on 06/13/16 21:21; Start 06/13/16 at 21:00 Carvedilol (Coreg) 12.5 mg BIDWMEALS PO Last administered on 06/13/16 21:23; Start 06/13/16 at 20:30 Diclofenac Sodium (Voltaren) 1 julita PRN BID PRN TP PAIN; Start 06/13/16 at 20:15 Divalproex Sodium (Depakote) 750 mg BID PO Last administered on 06/13/16 21:23 ; Start 06/13/16 at 21:00 Donepezil HCl (Aricept) 10 mg HS PO Last administered on 06/13/16 21:22; Start 06/13/16 at 21:00 Lisinopril (Prinivil) 40 mg DAILY PO Last administered on 06/13/16 21:22; Start 06/13/16 at 20:30 Magnesium Hydroxide (Milk Of Magnesia) 400 mg PRN Q6HRS PRN PO DYSPEPSIA; Start 06/13/16 at 20:15; Status Cancel Memantine (Namenda) 10 mg BID PO Last administered on 06/13/16 21:21; Start at 21:00 Potassium Chloride (KCl Oral Soln) 20 meq 3X/WEEK PO ; Start 06/15/16 at 09:00 Senna/Docusate Sodium (Senna Plus) 1 tab BID PO Last administered on 06/13/16 21:23; Start 06/13/16 at 21:00 Sodium Chloride (Saline Mist Nasal) 2 julita TID NS Last administered on 22:23; Start 06/13/16 at 21:00 Warfarin Sodium (Coumadin) 4.5 mg DAILY PO ; Start 06/14/16 at 09:00; Status UNV Non-Formulary Medication 2.5 mg PRN Q6HRS PRN NEB SHORTNESS OF BREATH; Start at 20:15; Status UNV Vitamin D (Vitamin D3) 2,000 unit DAILY PO ; Start 06/14/16 at 09:00 Hydralazine HCl (Apresoline) 100 mg TID PO Last administered on 06/13/16 21:22 ; Start 06/13/16 at 21:00 Loperamide HCl (Imodium) 2 mg PRN Q15MIN PRN PO DIARRHEA; Start 06/13/16 at 20: 30 Magnesium Hydroxide (Milk Of Magnesia) 2,400 mg PRN DAILY PRN PO CONSTIPATION; Start 06/13/16 at 20:30 Multivitamins (Thera M Plus) 1 tab DAILY PO ; Start 06/14/16 at 09:00 Nifedipine (Procardia Xl) 60 mg DAILY PO ; Start 06/14/16 at 09:00 Artificial Tears (Artificial Tears) 2 drop QID OU Last administered on 22:23; Start 06/13/16 at 21:00 Sertraline HCl (Zoloft) 125 mg DAILY PO ; Start 06/14/16 at 09:00 Albuterol Sulfate (Ventolin Neb Soln) 2.5 mg PRN Q6HRS PRN NEB SHORTNESS OF BREATH Last administered on 06/14/16 08:01; Start 06/13/16 at 20:30 Warfarin Sodium (Coumadin Per Physician) 1 each PRN DAILY PRN MC SEE COMMENTS Last administered on 06/14/16 16:04; Start 06/13/16 at 21:15 Warfarin Sodium (Coumadin) 2.5 mg 1X WARF ONCE PO ; Start 06/14/16 at 16:00; Stop 06/14/16 at 16:01; Status DC Warfarin Sodium (Coumadin) 2 mg 1X WARF ONCE PO ; Start 06/14/16 at 16:00; Stop 06/14/16 at 16:01; Status DC Gadobutrol 9 mmol 9 mmol 1X ONCE IV Last administered on 06/14/16 12:17; Start 06/14/16 at 12:00; Stop 06/14/16 at 12:01; Status DC Sodium Chloride (Iv Sodium Chloride 0.9% 1000ml Bag) 1,000 ml @ 75 mls/hr [id number] IV Last administered on 06/14/16 13:07; Start 06/14/16 at 12:00 Active Scripts Active Reported Zoloft (Sertraline Hcl) 100 Mg Tablet 125 Mg PO DAILY Voltaren (Diclofenac Sodium) 100 Gm Gel..gram. 1 Gm TP BID PRN Trazodone Hcl 50 Mg Tablet 25 Mg PO HS Systane 0.3-0.4% Eye Drops (Propylene Glycol/Peg 400) 15 Ml Drops 2 Drop EACHEYE QID Senna Plus Tablet (Sennosides/Docusate Sodium) 1 Each Tablet 1 Each PO BID Saline Nasal [place] (Sodium Chloride) 30 Ml [place] 2 [place] NS TID Procardia Xl (Nifedipine) 60 Mg Tab.er.24 60 Mg PO DAILY Potassium Chloride Oral Liquid (Potassium Chloride) 20 Meq/15 Ml Liquid 20 Meq PO 3X/WEEK Namenda (Memantine Hcl) 10 Mg Tablet 10 Mg PO BID Multi-Vitamin Daily (Multivitamin) 1 Each Tablet 1 Each PO DAILY Milk Of Magnesia (Magnesium Hydroxide) 400 Mg/5 Ml Oral.susp 400 Mg PO PRN Q6HRS PRN Milk Of Magnesia (Magnesium Hydroxide) 2,400 Mg/10 Ml Oral.susp 2,400 Mg PO DAILY PRN Loperamide (Loperamide Hcl) 2 Mg Tablet 2 Mg PO PRN Q2HR PRN Lisinopril 40 Mg Tablet 1 Tab PO DAILY Hydralazine Hcl 100 Mg Tablet 1 Tab PO TID hold for systolic <100 Depakote Er (Divalproex Sodium) 500 Mg Tab.er.24h 750 Mg PO BID Coumadin (Warfarin Sodium) 4 Mg Tablet 4.5 Mg PO DAILY D3-2000 (Cholecalciferol (Vitamin D3)) 2,000 Unit Capsule 2,000 Unit PO DAILY Carvedilol 12.5 Mg Tablet 12.5 Mg PO BIDWMEALS Buspirone Hcl 10 Mg Tablet 10 Mg PO QID Bisacodyl 10 Mg Supp.rect 10 Mg RC PRN DAILY PRN Baclofen 10 Mg Tablet 5 Mg PO DAILY08 Baclofen 10 Mg Tablet 10 Mg PO HS Atorvastatin Calcium 20 Mg Tablet 20 Mg PO HS Aspir 81 (Aspirin) 81 Mg Tablet.dr 81 Mg PO DAILYWBKFT Aricept (Donepezil Hcl) 10 Mg Tablet 10 Mg PO HS Albuterol Sulfate Conc Neb Soln (Albuterol Sulfate) 2.5 Mg/0.5 Ml Vial.neb 2.5 Mg NEB PRN Q6HRS PRN Acetaminophen 500 Mg Tablet 500 Mg PO PRN Q4HRS PRN Vitals/I & O Vital Sign - Last 24 Hours 06/14/16 06/14/16 06/14/16 06/14/16 02:53 07:00 08:00 08:00 Temp 98.4 99.2 98.4 99.2 Pulse 69 74 Resp 18 B/P 99/52 94/56 Pulse Ox 93 96 O2 Delivery Nasal Cannula Nasal Cannula Nasal Cannula Nasal Cannula O2 Flow Rate 5.0 5.0 5.0 4.0 06/14/16 06/14/16 06/14/16 06/14/16 08:01 10:54 13:15 15:09 Temp 98.3 98.5 98.3 98.5 Pulse 68 66 68 Resp 17 B/P 103/70 135/75 133/76 Pulse Ox 94 98 95 O2 Delivery Nasal Cannula Nasal Cannula Nasal Cannula O2 Flow Rate 4.0 5.0 5.0 06/14/16 19:00 Temp 98.3 98.3 Pulse 70 Resp 18 B/P 149/83 Pulse Ox 94 O2 Delivery Nasal Cannula O2 Flow Rate 5.0 Intake and Output 06/13/16 06/13/16 06/14/16 15:00 23:00 07:00 Intake Total 0 ml 700 ml Balance 0 ml 700 ml PARRISH WALLACE MD Jun 14, 2016 22:55
[2016-06-14 22:57] VITALS: BP 136/82
[2016-06-15] MEDS: IV NORMAL SALINE 1000ML BAG 1,000 ML IV SCH ×2 (01:45→14:40)
[2016-06-15 03:17] VITALS: BP 150/69
[2016-06-15 07:00] VITALS: BP 168/94
[2016-06-15] MEDS ORDERED: POTASSIUM CHLORIDE 20 MEQ/15 ML ORAL LIQUID. PO SCH (09:00)
[2016-06-15] MEDS: SODIUM CHLORIDE 0.65% NASAL SPRAY 45ML BOTTLE. NS SCH ×2 (09:51→14:00)
[2016-06-15] MEDS: POLYVINYL ALCOHOL 1.4% OPHTH SOLUTION 15ML BOTTLE. OU SCH ×2 (09:51→13:00)
[2016-06-15 11:00] VITALS: BP 173/89
--- NOTE | 2016-06-15 12:22 | PDOC ---
PROGRESS NOTES Chief Complaint Chief Complaint CC: ams ENCEPHALOPATHY POA suspected due to polypharmacy. ? 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 Warfarin dosing per pharmacy BP not controlled continue current care PNR hydralazine Vitals Vitals Vital Signs Date Time Temp Pulse Resp B/P Pulse Ox O2 Delivery O2 Flow Rate FiO2 06/15/16 11:00 98.7 66 20 173/89 95 Room Air 98.7 06/15/16 03:17 5.0 Physical Exam General: Alert, Other (oriente to palce, following commands. ) Heart: Normal S1, Normal S2 Lungs: Clear Abdomen: Normal bowel sounds, Soft Extremities: No clubbing, Other (left side weakness. ) Assessment and Plan Assessmemt and Plan Problems Medical Problems: (1) Mental status change Status: Acute Problems: Comment Review of Relevant I have reviewed the following items mandy (where applicable) has been applied. Labs Laboratory Tests Test 06/13/16 15:30 06/13/16 16:25 06/13/16 18:20 06/13/16 20:40 Nasal Screen MRSA (PCR) Negative (Negative) Glucose (Fingerstick) 105mg/dL (70-99) Troponin I Quantitative 0.019ng/mL (0.000-0.055) Prothrombin Time 32.4SEC (11.7-14.0) Prothromb Time International Ratio 3.4 (0.8-1.1) Test 06/14/16 00:30 06/14/16 10:15 White Blood Count 10.2x10^3/uL (4.0-11.0) Red Blood Count 3.63x10^6/uL (4.30-5.70) Hemoglobin 11.1g/dL (13.0-17.5) Hematocrit 33.6% (39.0-53.0) Mean Corpuscular Volume 93fL (79-100) Mean Corpuscular Hemoglobin 31pg (25-35) Mean Corpuscular Hemoglobin Concent 33g/dL (31-37) Red Cell Distribution Width 13.3% (11.5-14.5) Platelet Count 141x10^3/uL (140-400) Neutrophils (%) (Auto) 77% (31-73) Lymphocytes (%) (Auto) 13% (24-48) Monocytes (%) (Auto) 9% (0-9) Eosinophils (%) (Auto) 0% (0-3) Basophils (%) (Auto) 0% (0-3) Neutrophils # (Auto) 7.9x10^3uL (1.8-7.7) Lymphocytes # (Auto) 1.4x10^3/uL (1.0-4.8) Monocytes # (Auto) 0.9x10^3/uL (0.0-1.1) Eosinophils # (Auto) 0.0x10^3/uL (0.0-0.7) Basophils # (Auto) 0.0x10^3/uL (0.0-0.2) Prothrombin Time 33.8SEC (11.7-14.0) Prothromb Time International Ratio 3.6 (0.8-1.1) Sodium Level 139mmol/L (136-145) Potassium Level 4.1mmol/L (3.5-5.1) Chloride Level 103mmol/L (98-107) Carbon Dioxide Level 25mmol/L (21-32) Anion Gap 11 (6-14) Blood Urea Nitrogen 21mg/dL (8-26) Creatinine 1.5mg/dL (0.7-1.3) Estimated GFR (Cockcroft-Gault) 56.5 BUN/Creatinine Ratio 14 (6-20) Glucose Level 84mg/dL (70-99) Calcium Level 8.4mg/dL (8.5-10.1) Total Bilirubin 0.6mg/dL (0.2-1.0) Aspartate Amino Transf (AST/SGOT) 16U/L (15-37) Alanine Aminotransferase (ALT/SGPT) 16U/L (16-63) Alkaline Phosphatase 38U/L (46-116) Troponin I Quantitative 0.017ng/mL (0.000-0.055) Total Protein 6.2g/dL (6.4-8.2) Albumin 2.6g/dL (3.4-5.0) Albumin/Globulin Ratio 0.7 (1.0-1.7) Urine Opiates Screen Neg (NEG) Urine Methadone Screen Neg (NEG) Urine Barbiturates Neg (NEG) Urine Phencyclidine Screen Neg (NEG) Urine Amphetamine/Methamphetamine Neg (NEG) Urine Benzodiazepines Screen Neg (NEG) Urine Cocaine Screen Neg (NEG) Urine Cannabinoids Screen Neg (NEG) Urine Ethyl Alcohol Neg (NEG) Medications Current Medications Albuterol/ Ipratropium (Duoneb) 3 ml 1X ONCE NEB Last administered on 10:47; Start 06/13/16 at 10:30; Stop 06/13/16 at 10:42; Status DC Ondansetron HCl (Zofran) 4 mg PRN Q8HRS PRN IV NAUSEA/VOMITING; Start 06/13/16 at 12:30; Stop 06/14/16 at 12:29; Status DC Acetaminophen (Tylenol) 500 mg PRN Q4HRS PRN PO PAIN; Start 06/13/16 at 20:15 Aspirin (Ecotrin) 81 mg DAILYWBKFT PO ; Start 06/14/16 at 08:00 Atorvastatin Calcium (Lipitor) 20 mg HS PO Last administered on 06/13/16 21:22 ; Start 06/13/16 at 21:00 Bisacodyl (Dulcolax Supp) 10 mg PRN DAILY PRN RC CONSTIPATION; Start 06/13/16 at 20:15 Buspirone HCl (Buspar) 10 mg QID PO Last administered on 06/13/16 21:21; Start 06/13/16 at 21:00 Carvedilol (Coreg) 12.5 mg BIDWMEALS PO Last administered on 06/13/16 21:23; Start 06/13/16 at 20:30 Diclofenac Sodium (Voltaren) 1 julita PRN BID PRN TP PAIN; Start 06/13/16 at 20:15 Divalproex Sodium (Depakote) 750 mg BID PO Last administered on 06/13/16 21:23 ; Start 06/13/16 at 21:00 Donepezil HCl (Aricept) 10 mg HS PO Last administered on 06/13/16 21:22; Start 06/13/16 at 21:00 Lisinopril (Prinivil) 40 mg DAILY PO Last administered on 06/13/16 21:22; Start 06/13/16 at 20:30 Magnesium Hydroxide (Milk Of Magnesia) 400 mg PRN Q6HRS PRN PO DYSPEPSIA; Start 06/13/16 at 20:15; Status Cancel Memantine (Namenda) 10 mg BID PO Last administered on 06/13/16 21:21; Start at 21:00 Potassium Chloride (KCl Oral Soln) 20 meq 3X/WEEK PO ; Start 06/15/16 at 09:00 Senna/Docusate Sodium (Senna Plus) 1 tab BID PO Last administered on 06/13/16 21:23; Start 06/13/16 at 21:00 Sodium Chloride (Saline Mist Nasal) 2 julita TID NS Last administered on 09:51; Start 06/13/16 at 21:00 Warfarin Sodium (Coumadin) 4.5 mg DAILY PO ; Start 06/14/16 at 09:00; Status UNV Non-Formulary Medication 2.5 mg PRN Q6HRS PRN NEB SHORTNESS OF BREATH; Start at 20:15; Status UNV Vitamin D (Vitamin D3) 2,000 unit DAILY PO ; Start 06/14/16 at 09:00 Hydralazine HCl (Apresoline) 100 mg TID PO Last administered on 06/13/16 21:22 ; Start 06/13/16 at 21:00 Loperamide HCl (Imodium) 2 mg PRN Q15MIN PRN PO DIARRHEA; Start 06/13/16 at 20: 30 Magnesium Hydroxide (Milk Of Magnesia) 2,400 mg PRN DAILY PRN PO CONSTIPATION; Start 06/13/16 at 20:30 Multivitamins (Thera M Plus) 1 tab DAILY PO ; Start 06/14/16 at 09:00 Nifedipine (Procardia Xl) 60 mg DAILY PO ; Start 06/14/16 at 09:00 Artificial Tears (Artificial Tears) 2 drop QID OU Last administered on 09:51; Start 06/13/16 at 21:00 Sertraline HCl (Zoloft) 125 mg DAILY PO ; Start 06/14/16 at 09:00 Albuterol Sulfate (Ventolin Neb Soln) 2.5 mg PRN Q6HRS PRN NEB SHORTNESS OF BREATH Last administered on 06/14/16 08:01; Start 06/13/16 at 20:30 Warfarin Sodium (Coumadin Per Physician) 1 each PRN DAILY PRN MC SEE COMMENTS Last administered on 06/14/16 16:04; Start 06/13/16 at 21:15 Warfarin Sodium (Coumadin) 2.5 mg 1X WARF ONCE PO ; Start 06/14/16 at 16:00; Stop 06/14/16 at 16:01; Status DC Warfarin Sodium (Coumadin) 2 mg 1X WARF ONCE PO ; Start 06/14/16 at 16:00; Stop 06/14/16 at 16:01; Status DC Gadobutrol 9 mmol 9 mmol 1X ONCE IV Last administered on 06/14/16 12:17; Start 06/14/16 at 12:00; Stop 06/14/16 at 12:01; Status DC Sodium Chloride (Iv Sodium Chloride 0.9% 1000ml Bag) 1,000 ml @ 75 mls/hr [id number] IV Last administered on 06/15/16 01:45; Start 06/14/16 at 12:00 Active Scripts Active Reported Zoloft (Sertraline Hcl) 100 Mg Tablet 125 Mg PO DAILY Voltaren (Diclofenac Sodium) 100 Gm Gel..gram. 1 Gm TP BID PRN Trazodone Hcl 50 Mg Tablet 25 Mg PO HS Systane 0.3-0.4% Eye Drops (Propylene Glycol/Peg 400) 15 Ml Drops 2 Drop EACHEYE QID Senna Plus Tablet (Sennosides/Docusate Sodium) 1 Each Tablet 1 Each PO BID Saline Nasal Franklin (Sodium Chloride) 30 Ml Franklin 2 Franklin NS TID Procardia Xl (Nifedipine) 60 Mg Tab.er.24 60 Mg PO DAILY Potassium Chloride Oral Liquid (Potassium Chloride) 20 Meq/15 Ml Liquid 20 Meq PO 3X/WEEK Namenda (Memantine Hcl) 10 Mg Tablet 10 Mg PO BID Multi-Vitamin Daily (Multivitamin) 1 Each Tablet 1 Each PO DAILY Milk Of Magnesia (Magnesium Hydroxide) 400 Mg/5 Ml Oral.susp 400 Mg PO PRN Q6HRS PRN Milk Of Magnesia (Magnesium Hydroxide) 2,400 Mg/10 Ml Oral.susp 2,400 Mg PO DAILY PRN Loperamide (Loperamide Hcl) 2 Mg Tablet 2 Mg PO PRN Q2HR PRN Lisinopril 40 Mg Tablet 1 Tab PO DAILY Hydralazine Hcl 100 Mg Tablet 1 Tab PO TID hold for systolic <100 Depakote Er (Divalproex Sodium) 500 Mg Tab.er.24h 750 Mg PO BID Coumadin (Warfarin Sodium) 4 Mg Tablet 4.5 Mg PO DAILY D3-2000 (Cholecalciferol (Vitamin D3)) 2,000 Unit Capsule 2,000 Unit PO DAILY Carvedilol 12.5 Mg Tablet 12.5 Mg PO BIDWMEALS Buspirone Hcl 10 Mg Tablet 10 Mg PO QID Bisacodyl 10 Mg Supp.rect 10 Mg RC PRN DAILY PRN Baclofen 10 Mg Tablet 5 Mg PO DAILY08 Baclofen 10 Mg Tablet 10 Mg PO HS Atorvastatin Calcium 20 Mg Tablet 20 Mg PO HS Aspir 81 (Aspirin) 81 Mg Tablet.dr 81 Mg PO DAILYWBKFT Aricept (Donepezil Hcl) 10 Mg Tablet 10 Mg PO HS Albuterol Sulfate Conc Neb Soln (Albuterol Sulfate) 2.5 Mg/0.5 Ml Vial.neb 2.5 Mg NEB PRN Q6HRS PRN Acetaminophen 500 Mg Tablet 500 Mg PO PRN Q4HRS PRN Vitals/I & O Vital Sign - Last 24 Hours 06/14/16 06/14/16 06/14/16 06/14/16 13:15 15:09 19:00 20:10 Temp 98.5 98.3 98.5 98.3 Pulse 66 68 70 Resp 18 B/P 135/75 133/76 149/83 Pulse Ox 95 94 O2 Delivery Nasal Cannula Nasal Cannula Nasal Cannula O2 Flow Rate 5.0 5.0 4.0 06/14/16 06/15/16 06/15/16 06/15/16 22:57 03:17 07:00 11:00 Temp 97.2 97.9 98.1 98.7 97.2 97.9 98.1 98.7 Pulse 78 67 66 66 Resp 18 18 20 20 B/P 136/82 150/69 168/94 173/89 Pulse Ox 96 94 96 95 O2 Delivery Nasal Cannula Nasal Cannula Room Air Room Air O2 Flow Rate 5.0 5.0 Intake and Output 06/14/16 06/14/16 06/15/16 15:00 23:00 07:00 Intake Total 0 ml 0 ml Balance 0 ml 0 ml PARRISH WALLACE MD Jun 15, 2016 12:22
[2016-06-15] MEDS: busPIRone 10 MG TABLET. PO SCH ×2 (13:00→13:06)
[2016-06-15] MEDS: SENNOSIDES/DOCUSATE 8.6/50MG TABLET. PO SCH (13:04)
[2016-06-15] MEDS: MULTIVITAMIN with MINERAL TABLET. PO SCH (13:05)
[2016-06-15] MEDS: DIVALPROEX DELAYED RELEASE 250 MG TABLET.DR. PO SCH (13:05)
[2016-06-15] MEDS: CHOLECALCIFEROL (VITAMIN D3) 1,000 UNIT TABLET PO SCH (13:05)
[2016-06-15] MEDS: MEMANTINE 10 MG TABLET. PO SCH (13:06)
[2016-06-15] MEDS: ASPIRIN ENTERIC COATED 81 MG TABLET.DR. PO SCH (13:06)
[2016-06-15] MEDS: LISINOPRIL 40 MG TABLET. PO SCH (13:07)
[2016-06-15] MEDS: CARVEDILOL 12.5 MG TABLET. PO SCH (13:08)
[2016-06-15 15:00] VITALS: BP 157/76
[2016-06-15] MEDS: SERTRALINE 25 MG TABLET. PO SCH (16:06)
[2016-06-15 16:07] VITALS: BP 157/76
--- NOTE | 2016-06-23 19:41 | DS ---
DATE OF DISCHARGE: 06/15/2016 DISCHARGE DIAGNOSES: 1. Mental status changes, questionable encephalopathy, maybe dementia related, unclear etiology. 2. Polypharmacy could be a contributing factor. 3. Questionable dementia. 4. Cerebrovascular accident with residual weakness 5. Hypertension. 6. Hyperlipidemia. BRIEF HOSPITAL COURSE: A 65-year-old -[place] male patient admitted to the hospital for altered mental status. The patient in baseline, status is unknown; however, during the hospitalization with symptomatic treatment, he is alert and verbal, but is not oriented to time, he is not oriented to place. Clinically, he is improving and no signs of infection noted. Looks like he is back to his baseline status and he deemed stable enough to go to longterm and follow up with continued care. Recommend to avoid polypharmacy. DISCHARGE EXAMINATION: GENERAL: Alert, oriented to place, following commands, normal. HEART: S1, S2 present. LUNGS: Anterior chest clear. ABDOMEN: Soft, normal bowel sounds. EXTREMITIES: Left-sided weakness. DISCHARGE DISPOSITION: care home facility. DISCHARGE CONDITION: Stable. FOLLOWUP: With primary care doctor. PROGNOSIS: Guarded. Total time spent for discharge is 31 minutes for patient education, counseling, and coordination of care. PARRISH WALLACE MD DR: CECIL/annie JOB#: [id number] / [id number] TYLERD
== END 2016-06-15 17:19 | DRG 70 ==
LOC: ER 10:23 → 5 SOUTH 11:30
PROVIDERS: ADMIT Internal Medicine Hematology & Oncology; ATTEND Internal Medicine Hematology & Oncology
DX: G93.40 Encephalopathy, unspecified (principal); N17.0 Acute kidney failure with tubular necrosis; G81.94 Hemiplegia, unspecified affecting left nondominant side; R09.02 Hypoxemia; F03.90 Unspecified dementia, unspecified severity, without behavioral disturbance, psychotic disturbance, mood disturbance, and anxiety; I12.9 Hypertensive chronic kidney disease with stage 1 through stage 4 chronic kidney disease, or unspecified chronic kidney disease; N18.1 Chronic kidney disease, stage 1; E78.5 Hyperlipidemia, unspecified; T50.905A Adverse effect of unspecified drugs, medicaments and biological substances, initial encounter
CPT/HCPCS: 36415; 51701; 70450; 70553; 71010; 80048; 80053; 80076; 81001; 82140; 82553; 82805; 82947; 83880; 84484; 85027; 85610; 87641; 93005; 94640; 94760; A9585; G0481; J7030; J7620; 92610; 99285-25

== ENCOUNTER 2020-02-07 19:53 | Emergency (ER) | payer MEDICARE, OTHER ==
[~2020-02-07] VITALS: Ht 188 cm; Wt 136.0 kg
[~2020-02-07 19:53] MED LIST: ACET500T68 PO; ALBU2.5V14 NEB; ASPI-482 PO; ATOR20TA58 PO; BACL10TA PO; BISA10SU4 RC; BUSP10TA PO; CARV12.511 PO; CHOL200044 PO; DICL100G54 TP; DIVA500T4 PO; DONE10TA61 PO; HYDR100T24 PO; LISI-130 PO; LOPE2TAB27 PO; MAGN24003 PO; MAGN400O7 PO; MEMA10TA PO; MULT-246 PO; NIFE60TA PO; POTA20LI2 PO; PROP15DR EACHEYE; SENN1TAB62 PO; SERT100T PO; SODI30SP NS; TRAZ-118 PO; WARF4TAB68 PO
--- NOTE | 2020-02-07 20:51 | PHYS DOC ---
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 intermediate was confused for his mental status. Glucose per EMS was 308 and glucose here was 145. Patient tested positive for Covid 7 days ago on the . Patient with no active complaints. Patient reports he can move his left arm from his prior stroke. Review of Systems: Review of Systems: Constitutional: Denies fever or chills. [] Eyes: Denies change in visual acuity. [] HENT: Denies nasal congestion or sore throat. [] Respiratory: Denies cough or shortness of breath. [] Cardiovascular: Denies chest pain or edema. [] GI: Denies abdominal pain, nausea, vomiting, bloody stools or diarrhea. [] : Denies dysuria. [] Musculoskeletal: Denies back pain or joint pain. [] Integument: Denies rash. [] Neurologic: Denies headache, focal weakness or sensory changes. [] Endocrine: Denies polyuria or polydipsia. [] Lymphatic: Denies swollen glands. [] Psychiatric: Denies depression or anxiety. [] Heart Score: Risk Factors: Risk Factors: DM, Current or recent (<one month) smoker, HTN, HLP, family history of CAD, obesity. Risk Scores: Score 0 - 3: 2.5% MACE over next 6 weeks - Discharge Home Score 4 - 6: 20.3% MACE over next 6 weeks - Admit for Clinical Observation Score 7 - 10: 72.7% MACE over next 6 weeks - Early Invasive Strategies Allergies: Allergies: Allergies Coded Allergies Type Severity Reaction Last Updated Verified No Known Drug Allergies 06/13/16 No Physical Exam: PE: Constitutional: Well developed, well nourished, no acute distress, non-toxic a ppearance. HENT: Normocephalic, atraumatic, Eyes: EOMI, conjunctiva normal, no discharge. Neck: Normal range of motion, supple, Cardiovascular: S1/2 present, regular rhythm Lungs & Thorax: Speaking in full sentences, bilateral equal chest rise, no tac hypnea or increased work of breathing Abdomen: soft, no tenderness, Skin: Warm, dry, no erythema, no rash. [] Back: No tenderness, no CVA tenderness. [] Extremities: No tenderness, no cyanosis, Neurologic: Alert and oriented X 3, normal motor function, normal sensory function, no focal deficits noted. [] Psychologic: Affect normal, judgement normal, mood normal. [] Current Patient Data: Labs: Laboratory Tests Test 02/07/20 20:04 Glucose (Fingerstick) 145 mg/dL (70-99) H Vital Signs: Vital Signs Date Time Temp Pulse Resp B/P (MAP) Pulse Ox O2 Delivery O2 Flow Rate FiO2 02/07/20 20:18 98.5 62 20 180/91 (120) 98 Room Air 98.5 EKG: EKG: Sinus rhythm at 69 bpm, left axis deviation, AR interval 202, QTC 485, new T wave inversions in V2, V3 and lead II, no ST elevations or ST depressions, EKG compared with prior from May 2016, first degree avb Radiology/Procedures: Radiology/Procedures: []IMAGING REPORT Signed PATIENT: ANTONIO PIZARRO NACCOUNT: [id number] : 1950 LOCATION: ER AGE: 69 SEX: M EXAM STATUS: REG ER ORD. PHYSICIAN: RAHEL APODACA DO REASON: ams PROCEDURE: CT HEAD WO CONTRAST CT HEAD/BRAIN WO Date: 02/07/2020 9:43 PM Clinical Indication: Reason: ams / Spl. Instructions: / History: Comparison: 06/13/2016. Technique: 5 mm axial tomographic images were obtained of the head without contrast. These were viewed on brain and bone windows. One or more of the following dose reduction techniques were utilized: Automated exposure control (AEC), Adjustment of mA and/or kV according to patient size, Use of iterative reconstruction technique such as ASiR, CT scan done according to ALARA and image gently/image wisely Findings: Moderate generalized cerebral and cerebellar volume loss. Moderate nonspecific periventricular hypoattenuation, most commonly seen with chronic small vessel ischemic disease. Calcified atherosclerosis of the bilateral cavernous and paraclinoid internal carotid arteries and intracranial vertebral arteries. No intra- or extra-axial mass or fluid collection. No acute hemorrhage. The ventricles are normal in size, shape, and morphology. The gee-white matter junction is normal. The subarachnoid cisterns are patent. The visualized paranasal sinuses are normal. The visualized portions of the orbits and globes are normal. The mastoid air cells are clear. The bakery worker conveyor line topogram shows no lytic lesion or fracture. Impression: No acute intracranial process. Moderate cerebral volume loss. Moderate chronic small vessel ischemic disease. Electronically signed by: Lois Rivas MD (02/07/2020 10:15 PM) [facility] DICTATED and SIGNED BY: LOIS RIVAS MD DATE: 02/07/[id number] 0 IMAGING REPORT Signed PATIENT: ANTONIO PIZARRO NACCOUNT: [id number] : 1950 LOCATION: ER AGE: 69 SEX: M EXAM STATUS: REG ER ORD. PHYSICIAN: RAHEL APODACA DO REASON: ams PROCEDURE: CHEST AP ONLY EXAM: Chest, single view. HISTORY: Altered mental status COMPARISON: 06/13/2016 FINDINGS: A frontal view of the chest is obtained. There is right greater than left lung interstitial infiltrate. There is no consolidated, pleural effusion or pneumothorax. The heart is normal in size. IMPRESSION: Right greater than left lung interstitial infiltrate. There is no consolidation. Electronically signed by: May Whitfield MD (02/07/2020 9:02 PM) [facility] DICTATED and SIGNED BY: MAY WHITFIELD MD DATE: 02/07/[id number] 0 Course & Med Decision Making: Course & Med Decision Making Pertinent Labs and Imaging studies reviewed. (See chart for details) []COVID-19 CRITERIA: The patient was evaluated during the global COVID-19 pandemic, and that diagnosis was suspected/considered upon their initial presentation. Their evaluation, treatment and testing was consistent with current guidelines for patients who present with complaints or symptoms that may be related to COVID-19. Concern for a few episodes of hypoglycemia that was treated by assisted prior to ED transfer. Patient awake and alert with history of dementia, following all commands. Afebrile with no hemodynamic instability. No hypoglycemia. Chest x-ray concerning for atypical infiltrates which is likely Covid related but will treat with azithromycin. Will discharge home with strict ED return precautions were given for fever, hypotension, difficulties breathing or chest pain. Encouraged urgent outpatient follow-up with PMD. Life- threatening processes were considered but are low suspicion at this time, given history, physical exam and ED workup. Pt was educated on all prescription m edications and adverse effects. All patient's questions were answered and pt was stable at time of discharge. Life/limb-threatening differential includes but is not limited to, end organ damage/sepsis, trauma/abuse/neglect, neurologic deficit, alcohol/drug ingestion, toxidrome, suicidal/homicidal ideations plans or attempts, psychosis or mental illness resulting in self neglect and inability to care for self. I spoken with the patient and her caregivers. I explained the patient's condition, diagnoses and treatment plan based on the information available to me at this time. I have answered the patient and her caregiver's questions and addressed any concerns. The patient and her caregivers have a good understanding of patient's diagnosis, condition and treatment plan as can be expected at this point. Vital signs have been stable. Patient's condition is stable and appropriate for discharge from the emergency department. Patient will pursue further outpatient evaluation with primary care physician or other designated or consulting physician as outlined in the discharge instructions. The patient and/or caregivers are agreeable to this plan of care and follow-up instructions have been explained in detail. The patient and/or caregivers have received these instructions in written form and have expressed an understanding of the discharge instructions. The patient and/or caregivers are aware that any significant change of condition or worsening of symptoms should prompt immediate return to this or the closest emergency department or call to 911. Cordell Disclaimer: Cordell Disclaimer: This electronic medical record was generated, in whole or in part, using a voice recognition dictation system. Departure Departure Impression: Primary Impression: COVID-19 Additional Impression: Atypical pneumonia Disposition: 01 DC HOME SELF CARE/HOMELESS Condition: STABLE Referrals: UDAY DEWITT DO (PCP) Patient Instructions: Pneumonia, Adult Additional Instructions: You have been tested for or diagnosed with COVID-19. It is an infection caused by a new type of coronavirus. COVID-19 will cause cold-like or mild flu symptoms in most. It can cause more severe symptoms like problems breathing in some. There is no treatment for COVID-19. The body will clear the infection over time. Self-care will help to ease discomfort. Steps to Take: Self-Care Rest as needed. Healthy habits may help you feel better. Steps include: Choose healthy foods including fruits and vegetables. Drink water throughout the day. Get plenty of sleep each night. If you smoke, try to quit. It may ease breathing. Avoid alcohol. Keep Others Healthy The virus can spread to others. Droplets are released every time you sneeze or cough. The droplets can get into the mouth, nose, or eyes of people near you and lead to infection. To lower the chances of spreading COVID-19 to others: Stay at home until your doctor has said it is safe to leave. If you tested positive this will mean staying isolated until both of the following are true: At least 7 days have passed since the start of illness. You are free of fever for at least 72 hours without the use of medicine. During this time: - Avoid public areas, events, or transportation. Do not return to work or school until your doctor has said it is safe to do so. - Call ahead if you need to go to a medical center. Let them know you may have COVID-19. It will help them guide you where to go. They may also ask you to wear a facemask when you come to the office. - If you call for emergency medical services, let them know you may have COVID- 19. While at home: - Try to avoid close contact with others. Stay about 6 feet away. - If possible, spend most of your time in a separate room from others. - Use a face mask if you will be in close contact with others such as sharing a room or vehicle. - Have someone wipe down common surfaces in the home. Use household social media campaign manager every day on areas like doorknobs, counters, or sinks. - Cough or sneeze into a tissue. Throw the tissue away right after use. If a tissue is not available, cough or sneeze into your elbow. - Wash your hands often. Wash them after sneezing or coughing. Use soap and water and wash for at least 20 seconds. Alcohol based hand sewer pipe cleaner can be used if soap and water is not available. - Do not prepare food for others. Avoid sharing personal items like forks, spoons, or toothbrushes. - Avoid close contact with pets while you are sick. There is no evidence of the virus passing to pets. This is a safety step until more is known about this virus. Isolation can be frustrating. Social interaction can help. Keep in touch with friends and family through phone and tech options. You can still interact with others in your home, just keep a safe distance of about 6 feet. Follow-up: Your doctors office will check in with you to see if there are any changes in your health. You may be asked to keep track of symptoms to share with them. They will also let you know when you are clear to be in public again. Problems to Look Out For: Contact your doctor if your recovery is not going as you expect. Get emergency care if you have problems such as: - Trouble breathing - Nonstop chest pain or pressure - Changes in awareness, confusion, or problems waking - Lips or face have bluish color - Worsening of symptoms If you think you have an emergency, call for emergency medical services right away. As taken from [facility] Azithromycin (ZITHROMAX) 250 Mg Tablet 250 MG PO as directed for ANTI-BIOTIC, #6 TAB 0 Refills Take 2 PO x 1 days Then take 1 PO q 24 hour for the next 4 days Prov: RAHEL APODACA DO 02/07/20 RAHEL APODACA DO Feb 07, 2020 20:50
--- NOTE | 2020-02-07 21:04 | RAD ---
EXAM: Chest, single view. HISTORY: Altered mental status COMPARISON: 06/13/2016 FINDINGS: A frontal view of the chest is obtained. There is right greater than left lung interstitial infiltrate. There is no consolidated, pleural effusion or pneumothorax. The heart is normal in size. IMPRESSION: Right greater than left lung interstitial infiltrate. There is no consolidation. Electronically signed by: May Ventura MD (02/07/2020 9:02 PM) [facility]
[2020-02-07 21:42] LABS: BASO % 1 % (0-3); EOS % 0 % (0-3); HEMATOCRIT 38.2 % (39.0-53.0); HEMOGLOBIN 12.5 g/dL (13.0-17.5); LYMPH # 1.1 x10^3/uL (1.0-4.8); LYMPH % 21 % (24-48); MEAN CORPUSCULAR HEMOGLOBIN 31 pg (25-35); MEAN CORPUSCULAR HGB CONC 33 g/dL (31-37); MEAN CORPUSCULAR VOLUME 93 fL (79-100); MONO # 0.6 x10^3/uL (0.0-1.1); MONO % 12 % (0-9); NEUT # 3.3 x10^3/uL (1.8-7.7); NEUT % 66 % (31-73); PLATELET COUNT 119 x10^3/uL (140-400); RED BLOOD COUNT 4.12 x10^6/uL (4.30-5.70); RED CELL DISTRIBUTION WIDTH 14.5 % (11.5-14.5)
[2020-02-07 21:54] LABS: CALCIUM 8.7 mg/dL (8.5-10.1); CREATININE 1.4 mg/dL (0.7-1.3); GFR 60.4; POTASSIUM 4.3 mmol/L (3.5-5.1)
[2020-02-07 22:02] LABS: ALBUMIN 2.9 g/dL (3.4-5.0); ALBUMIN/GLOBULIN RATIO 0.9 (1.0-1.7); TOTAL BILIRUBIN 0.6 mg/dL (0.2-1.0); TOTAL PROTEIN 6.3 g/dL (6.4-8.2)
--- NOTE | 2020-02-07 22:17 | RAD ---
CT HEAD/BRAIN WO Date: 02/07/2020 9:43 PM Clinical Indication: Reason: ams / Spl. Instructions: / History: Comparison: 06/13/2016. Technique: 5 mm axial tomographic images were obtained of the head without contrast. These were view ed on brain and bone windows. One or more of the following dose reduction techniques were utilized: A utomated exposure control (AEC), Adjustment of mA and/or kV according to patient size, Use of iterati ve reconstruction technique such as ASiR, CT scan done according to ALARA and image gently/image wasserman ly Findings: Moderate generalized cerebral and cerebellar volume loss. Moderate nonspecific periventricular hypoat tenuation, most commonly seen with chronic small vessel ischemic disease. Calcified atherosclerosis o f the bilateral cavernous and paraclinoid internal carotid arteries and intracranial vertebral arteri es. No intra- or extra-axial mass or fluid collection. No acute hemorrhage. The ventricles are normal in size, shape, and morphology. The gee-white matter junction is normal. The subarachnoid cisterns are patent. The visualized paranasal sinuses are normal. The visualized portions of the orbits and globes are no rmal. The mastoid air cells are clear. The heavy mobile equipment repairer topogram shows no lytic lesion or fracture. Impression: No acute intracranial process. Moderate cerebral volume loss. Moderate chronic small vessel ischemic disease. Electronically signed by: Chriss Rivas MD (02/07/2020 10:15 PM) [facility]
[2020-02-07] MEDS ORDERED: AZIT250T PO (23:30)
[2020-02-08 00:21] VITALS: BP 181/107
--- NOTE | 2020-02-08 13:09 | EKG ---
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
== END 2020-02-08 01:00 | disposition home or self-care (01) ==
LOC: ER 19:53
DX: U07.1 COVID-19 (principal); J18.9 Pneumonia, unspecified organism; R41.82 Altered mental status, unspecified; F41.9 Anxiety disorder, unspecified; I11.0 Hypertensive heart disease with heart failure; I50.9 Heart failure, unspecified; F32.9 Major depressive disorder, single episode, unspecified; E78.00 Pure hypercholesterolemia, unspecified; I25.2 Old myocardial infarction; E11.649 Type 2 diabetes mellitus with hypoglycemia without coma; Z98.890 Other specified postprocedural states
CPT/HCPCS: 36415; 70450; 71045; 80053; 82962; 83690; 84484; 85025; 93005; 99285